=== PATIENT | female | born 1950 | race Caucasian/White ===

== ENCOUNTER 2023-07-11 20:45 | Emergency (ER) | payer MEDICARE, SELFPAY ==
--- NOTE | ~2023-07-11 | XR_ITS ---
EXAMINATION: XR chest 1V portable Exam Date/Time: 07/11/2023 21:10 CDT HISTORY: SVT, lightheaded, vomiting Comparison: 08/30/2018. RESULT: Lines, tubes, and devices: Loop recorder. Lungs and pleura: Diffuse mid and lower lung reticular opacities. Left costophrenic angle blunting. Cardiomediastinal silhouette: Stable. Other: No acute osseous or upper abdominal finding. IMPRESSION: Mild interstitial edema. Subsegmental left basilar atelectasis/consolidation. Possible small left ple ural effusion. Reviewed, dictated and finalized at location K. IMPRESSION: Mild interstitial edema. Subsegmental left basilar atelectasis/consolidation. P ossible small left pleural effusion.
--- NOTE | 2023-07-11 20:50 | ECG_ITS ---
Measurements Intervals [place] Rate: 100 P: 68 AK: 137 QRS: 28 QRSD: 93 T: -27 QT: 322 QTc: 416 Interpretive Statements SINUS TACHYCARDIA WITH SINUS ARRHYTHMIA INCOMPLETE RIGHT BUNDLE BRANCH BLOCK NONSPECIFIC ST & T-WAVE ABNORMALITY- ANT/INF LEADS BORDERLINE ECG NO PREVIOUS ECG AVAILABLE FOR COMPARISON Electronically Signed On 07-12-2023 7:00:54 CDT by Sekou Rubi D.O.
[2023-07-11 20:51] VITALS: BP 142/85; PULSE 101; RESP 23; O2SAT 95
--- NOTE | 2023-07-11 21:01 | ED.ARRPALP ---
HPI - Arrhythmia/Palpitations General Chief Complaint: Arrhythmia/Palpitations Stated Complaint: svt Time Seen by Provider: 07/11/23 20:46 History of Present Illness HPI narrative: Patient is a 73-year-old female with a history of SVT status post ablations presenting with SVT. Patient was out dancing tonight when she developed palpitations and lightheadedness. States that it felt like her prior episodes of SVT. She became nauseated and had an episode of emesis. When EMS arrived, her heart rate was in the 200s, SVT on EKG. She received 6 mgs then 12 mgs of adenosine without resolution of her SVT. She was then cardioverted successfully. On arrival, she is in sinus rhythm. She denies current complaints. She denies any chest pain or shortness of breath tonight. States that she takes metoprolol twice a day. Related Data Allergies Allergy/AdvReac Type Severity Reaction Status Date / Time No Known Allergies Allergy Verified 07/14/23 14:05 Review of Systems Review of Systems: All systems reviewed & are unremarkable except as noted in HPI and below [facility] Social History Social History (Updated 07/14/23 @ 14:42 by Shellie Loera MA) Smoking status: Former smoker Alcohol intake: current Alcohol use details: rarely Substance use: never Substance use type: does not use Lack of Transportation: No Lack of Food: Never True Current Housing: I Have Housing Concerned About Future Housing: No Difficulty Paying Gas/Electric Bills: No Difficulty Paying for Meds: No Currently Unemployed: No Education: High School Diploma/GED Difficulty w/ Childcare or Family Care: No Living arrangements: with family Gender identity (if verbalized by the patient): Female Exam Narrative: GENERAL: Well-appearing, in no acute distress, pleasant and cooperative HEAD: Normocephalic, atraumatic. EYES: PERRLA and EOMI. ENT: Nares clear, no rhinorrhea or epistaxis. Mucous membranes moist. NECK: Supple. CHEST: Clear to auscultation. No respiratory distress. HEART: Regular rate and rhythm. Normal peripheral pulses. ABDOMEN: Soft, nontender, nondistended EXTREMITIES: Normal range of motion. No edema. SKIN: Warm, dry, no rash. NEURO: No focal deficits. Alert and oriented x3. PSYCH: Normal mood and affect. Course Vital Signs Vital signs: Vital Signs Pulse Rate 101 H 07/11/23 20:51 Respiratory Rate 23 H 07/11/23 20:51 Blood Pressure 142/85 H 07/11/23 20:51 Pulse Oximetry 95 07/11/23 20:51 Oxygen Delivery Room Air 07/11/23 20:51 Pulse Rate 69 07/11/23 23:55 Respiratory Rate 14 07/11/23 23:55 Blood Pressure 107/83 07/11/23 23:55 Pulse Oximetry 99 07/11/23 23:55 Oxygen Delivery Room Air 07/11/23 20:51 MDM - Arrhythmia/Palpitations MDM Narrative Medical decision making narrative: Patient is a 73-year-old female presenting with SVT. Patient was cardioverted by EMS. By the time I evaluated her, she is in sinus rhythm. She denies any complaints at this time. Plan for blood work, chest x-ray, fluids, dose of metoprolol. EKG per my interpretation shows sinus tachycardia with incomplete right bundle branch block, no ST elevations or depressions. Unchanged from prior. Blood work with leukocytosis. Patient denies any infectious symptoms. Troponin is 0.021. Chest x-ray with very mild interstitial edema, likely related to this episode of SVT. She denies any respiratory complaints. Patient observed for several hours. Heart rate has normalized to the 60s. No recurrence of symptoms or arrhythmias. Feel she is safe for outpatient management. Advised cardiology and PCP follow-up. Appropriate return precautions given. Patient voiced understanding and is agreeable with plan. Discharged in stable condition. Differential Diagnosis Differential diagnosis: Likely palpitations, anxiety, sinus tachycardia, artial fibrillation, artial flutter and supraventricular tachycardia Medical R
[2023-07-11] MEDS: SODIUM CHLORIDE 0.9% IV 1,000 ML 999 ML IV CONT (21:34)
[2023-07-11 21:35] VITALS: PULSE 98
[2023-07-11] MEDS: METOPROLOL TARTRATE 50 MG TAB 25 MG PO (21:35)
[2023-07-11 22:00] LABS: Basophils Absolute Auto 0.1 K/mm3 (0.0-0.1); Basophils Percent Auto 0.3 % (0.2-1.2); Eosinophils Absolute Auto 0.1 K/mm3 (0-0.3); Eosinophils Percent Auto 0.9 % (0-4.4); Hemoglobin 11.5 g/dL (12.0-15.0); Immature Granulocyte Percent A 0.7 % (0-0.5); Lymphocytes Absolute Auto 1.04 K/mm3 (0.9-3.2); Lymphocytes Percent Auto 6.8 % (18.3-44.2); Mean Corpuscular HGB Conc 31.9 g/dl (32-36); Mean Corpuscular Hemoglobin 27.1 pg (26-34); Mean Corpuscular Volume 84.7 fl (80-100); Mean Platelet Volume 9.6 fl (7.4-10.4); Monocytes Absolute Auto 0.7 K/mm3 (0.1-0.6); Monocytes Percent Auto 4.7 % (2.6-8.5); Neutrophils Absolute Auto 13.2 K/mm3 (1.3-6.7); Neutrophils Percent Auto 86.6 % (45.5-73.1); Platelet Count Result 228 k/mm3 (150-375); Red Blood Count 4.25 M/mm3 (4.2-5.4); Red Cell Distribution Width 14.5 % (11.5-14.5); White Blood Count 15.3 K/mm3 (4.5-10.0)
[2023-07-11 22:14] LABS: INR 1.1; Partial Thromboplastin Time 25.5 SECONDS (22.3-36.8); Prothrombin Time 14.7 Seconds (11.1-14.7)
[2023-07-11 22:16] LABS: Alanine Aminotransferase 136 U/L (6-35); Alkaline Phosphatase 100 U/L (38-126); Anion Gap 6 mmol/L (8-16); Aspartate Amino Transferase 203 U/L (14-36); Bilirubin,Total 0.5 mg/dL (0.2-1.3); Blood Urea Nitrogen 14 mg/dL (7-17); Calcium 8.9 mg/dL (8.4-10.2); Carbon Dioxide 26 mmol/L (22-30); Chloride 107 mmol/L (98-107); Estimated CRCL calculation 42 ml/min; Estimated Glomerular Filt Rate > 60; Glucose 153 mg/dL (65-110); Magnesium 2.4 mg/dL (1.6-2.3); Potassium 3.5 mmol/L (3.4-5.0); Sodium 139 mmol/L (137-145)
[2023-07-11 22:27] LABS: Troponin I 0.021 ng/mL (0.000-0.034)
[2023-07-11 23:00] VITALS: PULSE 98
[2023-07-11 23:01] VITALS: BP 122/68; PULSE 74; RESP 19; O2SAT 99
[2023-07-11 23:55] VITALS: BP 107/83; PULSE 69; RESP 14; O2SAT 99
== END 2023-07-11 23:55 | disposition home or self-care (01) ==
PROVIDERS: Emergency Provider Emergency Medicine; PCP Family Medicine
DX: I47.1 Supraventricular tachycardia (principal); R00.2 Palpitations; Z87.891 Personal history of nicotine dependence; I45.10 Unspecified right bundle-branch block; R94.31 Abnormal electrocardiogram [ECG] [EKG]; J81.1 Chronic pulmonary edema
CPT/HCPCS: 36415; 71045; 80053; 83735; 84484; 85025; 85610; 85730; 93005; 96360; 99284; A9270; J7030

== ENCOUNTER 2023-07-16 08:18 | Outpatient (CLI) | payer MEDICARE, SELFPAY ==
[2023-07-16 09:59] LABS: Hematocrit 40.6 % (37.0-47.0); Hemoglobin 12.4 g/dL (12.0-15.0); Mean Corpuscular HGB Conc 30.5 g/dl (32-36); Mean Corpuscular Hemoglobin 26.3 pg (26-34); Mean Platelet Volume 10.3 fl (7.4-10.4); Platelet Count Result 231 k/mm3 (150-375); Red Blood Count 4.72 M/mm3 (4.2-5.4); Red Cell Distribution Width 14.4 % (11.5-14.5); White Blood Count 8.2 K/mm3 (4.5-10.0)
[2023-07-16 10:27] LABS: Alanine Aminotransferase 41 U/L (6-35); Alkaline Phosphatase 72 U/L (38-126); Anion Gap 5 mmol/L (8-16); Aspartate Amino Transferase 28 U/L (14-36); Bilirubin,Total 0.5 mg/dL (0.2-1.3); Blood Urea Nitrogen 19 mg/dL (7-17); Calcium 9.4 mg/dL (8.4-10.2); Carbon Dioxide 31 mmol/L (22-30); Chloride 105 mmol/L (98-107); Cholesterol 228 mg/dL (0-200); Estimated Glomerular Filt Rate > 60; Glucose 105 mg/dL (65-110); HDL Direct 63 mg/dL; Potassium 4.2 mmol/L (3.4-5.0); Sodium 141 mmol/L (137-145); Triglycerides 72 mg/dL (<150)
[2023-07-16 10:30] LABS: Iron 64 ug/dL (37-170)
[2023-07-16 10:32] LABS: Hemoglobin A1C 5.8 % (<5.7)
[2023-07-16 10:45] LABS: LDL Cholesterol Direct 135 mg/dL
[2023-07-16 10:51] LABS: Percent Iron Saturation 24 % (20-50)
== END 2023-07-16 08:19 | disposition home or self-care (01) ==
PROVIDERS: PCP Family Medicine; Visit Provider Family Medicine
DX: R73.03 Prediabetes (principal); R74.8 Abnormal levels of other serum enzymes; E78.5 Hyperlipidemia, unspecified; D64.9 Anemia, unspecified; Z79.899 Other long term (current) drug therapy
CPT/HCPCS: 36415; 80053; 80061; 82728; 83036; 83540; 83550; 84443; 85027

== ENCOUNTER 2024-02-23 09:15 | Outpatient (CLI) | payer MEDICARE, SELFPAY ==
[2024-02-23 14:14] LABS: Alanine Aminotransferase 21 U/L (6-35); Albumin Level 4.2 g/dL (3.5-5.1); Alkaline Phosphatase 71 U/L (38-126); Anion Gap 4 mmol/L (4-12); Aspartate Amino Transferase 35 U/L (14-36); Bilirubin,Total 0.4 mg/dL (0.2-1.3); Blood Urea Nitrogen 22 mg/dL (7-17); Calcium 9.3 mg/dL (8.4-10.2); Carbon Dioxide 24 mmol/L (22-30); Chloride 109 mmol/L (98-107); Estimated Glomerular Filt Rate > 60; Glucose 89 mg/dL (65-110); Potassium 4.2 mmol/L (3.4-5.0); Sodium 137 mmol/L (137-145)
== END 2024-02-23 09:16 | disposition home or self-care (01) ==
PROVIDERS: PCP Family Medicine; Visit Provider Family Medicine
DX: Z79.899 Other long term (current) drug therapy (principal)
CPT/HCPCS: 36415; 80053

== ENCOUNTER 2024-05-02 08:24 | Outpatient (CLI) | payer MEDICARE, SELFPAY ==
[2024-05-02 15:11] LABS: Hematocrit 38.3 % (37.0-47.0); Hemoglobin 11.7 g/dL (12.0-15.0); Mean Corpuscular HGB Conc 30.5 g/dl (32-36); Mean Corpuscular Hemoglobin 26.2 pg (26-34); Mean Corpuscular Volume 85.7 fl (80-100); Mean Platelet Volume 9.5 fl (7.4-10.4); Platelet Count Result 301 k/mm3 (150-375); Red Blood Count 4.47 M/mm3 (4.2-5.4); Red Cell Distribution Width 14.3 % (11.5-14.5); White Blood Count 8.6 K/mm3 (4.5-10.0)
[2024-05-02 15:34] LABS: Hemoglobin A1C 6.4 % (<5.7)
[2024-05-02 15:35] LABS: Alanine Aminotransferase 20 U/L (6-35); Albumin Level 4.4 g/dL (3.5-5.1); Alkaline Phosphatase 78 U/L (38-126); Anion Gap 11 mmol/L (4-12); Aspartate Amino Transferase 40 U/L (14-36); Bilirubin,Total 0.4 mg/dL (0.2-1.3); Blood Urea Nitrogen 16 mg/dL (7-17); Calcium 9.5 mg/dL (8.4-10.2); Carbon Dioxide 22 mmol/L (22-30); Chloride 106 mmol/L (98-107); Cholesterol 228 mg/dL (0-200); Estimated Glomerular Filt Rate > 60; Glucose 83 mg/dL (65-110); HDL Direct 51 mg/dL; Potassium 4.4 mmol/L (3.4-5.0); Sodium 139 mmol/L (137-145); Triglycerides 97 mg/dL (<150)
[2024-05-02 16:16] LABS: LDL Cholesterol Direct 147 mg/dL
== END 2024-05-02 08:25 | disposition home or self-care (01) ==
LOC: ANHGOSHLAB 08:26
PROVIDERS: PCP Family Medicine; Visit Provider Family Medicine
DX: R73.03 Prediabetes (principal); E78.5 Hyperlipidemia, unspecified; Z79.899 Other long term (current) drug therapy
CPT/HCPCS: 36415; 80053; 80061; 83036; 85027

== ENCOUNTER 2024-10-27 13:04 | Outpatient (CLI) | payer MEDICARE, SELFPAY ==
[2024-10-27 20:37] LABS: Hematocrit 40.4 % (37.0-47.0); Hemoglobin 12.3 g/dL (12.0-15.0); Mean Corpuscular HGB Conc 30.4 g/dl (32-36); Mean Corpuscular Hemoglobin 25.7 pg (26-34); Mean Corpuscular Volume 84.5 fl (80-100); Platelet Count Result 291 k/mm3 (150-375); Red Blood Count 4.78 M/mm3 (4.2-5.4); Red Cell Distribution Width 13.5 % (11.5-14.5); White Blood Count 10.3 K/mm3 (4.5-10.0)
[2024-10-27 20:41] LABS: CRP 0.6 mg/dL (<1.0); Uric Acid 4.1 mg/dL (2.5-7.5)
[2024-10-27 20:51] LABS: Rheumatoid Factor 22.3 IU/ML (<12)
[2024-10-27 21:09] LABS: Erythrocyte Sedimentation Rate 16 mm/hr (0-20)
[2024-10-27 21:35] LABS: Folic Acid 16.1 ng/mL (2.76->20)
[2024-10-27 23:51] LABS: Vitamin D 25 Hydroxy 34.5 ng/mL
== END 2024-10-27 13:05 | disposition home or self-care (01) ==
PROVIDERS: PCP Family Medicine; Visit Provider Internal Medicine Rheumatology
DX: M06.9 Rheumatoid arthritis, unspecified (principal); M19.90 Unspecified osteoarthritis, unspecified site; E55.9 Vitamin D deficiency, unspecified; E53.8 Deficiency of other specified B group vitamins; D50.9 Iron deficiency anemia, unspecified; Z11.59 Encounter for screening for other viral diseases; Z51.81 Encounter for therapeutic drug level monitoring
CPT/HCPCS: 36415; 82306; 82607; 82746; 84550; 85027; 85652; 86038; 86039; 86140; 86200; 86430; 87522

== ENCOUNTER 2024-11-14 13:58 | Outpatient (CLI) | payer MEDICARE, SELFPAY ==
--- OUTSIDE RECORDS SUMMARY | 2024-11-14 14:45 | XMS_ITS | Referral Summary ---
Author Organization [facility] Address [address] [place] [address] Care Team Providers Care Family Independence Case Manager Name Role Phone Marci Hannah MD Primary Care Provider + Allergies No known active allergies Medications metoprolol tartrate (LOPRESSOR) 25 mg immediate release tablet Take 1 tablet (25 mg total) by mouth 2 (two) times a day 60 tablet 11 09/11/2023 Active Active Problems Problem Noted Date Diagnosed Date Atrial tachycardia, paroxysmal 09/09/2023 Assessment & Plan (09/09/2023 10:53 AM OPERATOR CAVITY PUMP): Frequent, short episodes of PAT. Likely responsible for regular palpitations. --Increase metoprolol to 25 mg BID Tachycardia 08/05/2023 Assessment & Plan (08/05/2023 1:22 PM CDT): Undifferentiated tachyarrhythmia. Recent event similar to prior episode. No ECGs/strips for review. --Will attempt to obtain ECG from ambulance --2 week Boxevery monitor --Continue metoprolol 12.5 mg BID Consider repeat EPS, possible ablation pending results PVC's (premature ventricular contractions) 08/05 Assessment & Plan (08/05/2023 1:23 PM CDT): S/p PVC ablation remotely by Dr. Milan. One PVC on ECG today. Unclear whether relevant to ongoing symptoms. --Continue metoprolol 12.5 mg BID --Monitor as above Status post placement of implantable loop record er 01/19/2019 Overview (01/19/2019): Medtronic LINQ (ILR) imp on 01/19/19 for VT. Kayli/Staci Torres VT (ventricular tachycardia) 11/17/2018 Overview (11/17/2018): Added automatically from request for surgery [id number] Assessment & Plan (09/09/2023 10:52 AM OPERATOR CAVITY PUMP): S/p VT ablation remotely by Dr. Milan. Occurring in context of a mild NICM. Some suggestion of ARVC by MRI without meeting diagnostic criteria. No recurrent episodes of sustained palpitations/syncope suggestive of VT. Event monitor shows no VT, rare PVCs. We discussed repeat ILR for ongoing monitoring. Will defer for now. Will increase BB and observe. Report any recurrent symptoms. --Increase metoprolol to 25 mg BID Palpitations 10/27/2018 Rheumatoid arthritis 10/27/2018 Elevated blood sugar 10/27/2018 Resolved Problems Problem Noted Date Diagnosed Date Resolved Date Atrial flutter (CMS/HCC) 10/27/2018 Social History Tobacco Use Types Packs/Day Years Used Date Smoking Tobacco: Former Smokeless Tobacco: Never Alcohol Use Standard Drinks/Week Comments Yes 0 (1 standard drink = 0.6 oz pur e alcohol) very rarely Comments Unknown Sex and Gender Information Value Date Recorded Sex Assigned at Not on file Legal Sex Female 2:01 AM OPERATOR CAVITY PUMP Gender Identity Not on file Sexual Orientation Not on file Last Filed Vital Signs Vital Sign Reading Time Taken Comments Blood Pressure 116/72 09/09/2023 10:36 AM OPERATOR CAVITY PUMP Pulse 55 09/09/2023 10:36 AM OPERATOR CAVITY PUMP Temperature 37.1 ??C (98.8 ??F) 01/19/2019 8:42 AM CD T Respiratory Rate 16 01/19/2019 8:42 AM CDT Oxygen Saturation 98% 09/09/2023 10: 36 AM OPERATOR CAVITY PUMP Inhaled Oxygen Concentration - - Weight 59.3 kg (130 lb 11.2 oz) 023 10:36 AM OPERATOR CAVITY PUMP Height 162.6 cm (5' 4.02 ) 09/09/2023 1 0:36 AM OPERATOR CAVITY PUMP Body Mass Index 22.42 09/09/2023 10:36 AM OPERATOR CAVITY PUMP Plan of Treatment Not on file Medical Devices Implanted Type Area Rougher Helper Device Identifier Shelf Expiration Date Model / Serial / Lot Medtronic Cardiac Rhythm Mgmt Linqsys Reveal Linq Mycarelink Insertable Loop Recorder Automatic - [id number] - [id number] Implanted:Qty: 1 on 01/18/2019 by Dev Milan MD at [facility] Medtronic Cardiac Rhythm Mgmt 08/15/2019 LINQSYS / [id number] / D Insurance MEDICARE SOLUTIONS MEDICARE SOLUTIONS Care Teams Family Independence Case Manager Relationship Specialty Start Date End Date Marci Hannah MD PCP - General Family Medicine 07/04/20
--- OUTSIDE RECORDS SUMMARY | 2024-11-14 14:45 | XMS_ITS | Clinical Summary ---
Author Organization [facility] Address [address] [place] [address] Care Team Providers Care Lapping Machine Tender Name Role Phone Marci Hannah MD Primary Care Provider + Allergies No known active allergies Medications metoprolol tartrate (LOPRESSOR) 25 mg immediate release tablet Take 1 tablet (25 mg total) by mouth 2 (two) times a day 60 tablet 11 09/11/2023 Active Active Problems Problem Noted Date Diagnosed Date Atrial tachycardia, paroxysmal 09/09/2023 Assessment & Plan (09/09/2023 10:53 AM CALIBRATOR BAROMETERS): Frequent, short episodes of PAT. Likely responsible for regular palpitations. --Increase metoprolol to 25 mg BID Tachycardia 08/05/2023 Assessment & Plan (08/05/2023 1:22 PM CDT): Undifferentiated tachyarrhythmia. Recent event similar to prior episode. No ECGs/strips for review. --Will attempt to obtain ECG from ambulance --2 week Ziltay monitor --Continue metoprolol 12.5 mg BID Consider [...] (11/17/2018): Added automatically from request for surgery [id number] Assessment & Plan (09/09/2023 10:52 AM CALIBRATOR BAROMETERS): S/p VT ablation remotely by Dr. Milan. [...] Date Resolved Date Atrial flutter (CMS/HCC) 10/27/2018 Surgical History Surgery Date Site/Laterality Comments CARDIAC CATHETERIZATION DILATION AND CURETTAGE OF UTERUS miscarrgiage Medical History Medical History Date Comments Hyperlipidemia Atrial fibrillation (CMS/HCC) (HCC) VT (ventricular tachycardia) (HCC) Hx of viral pneumonia walking pn e[place] ?source Family History Medical History Relation Name Comments Cancer Brother 1 Cancer -; Colon cancer Brother 2 Cancer -colon; Asthma Daughter Asthma; Alzheimer's disease Father Cancer Father Cancer -; Diabetes type II Sister Diabetes -T ype 2; Relation Name Status Comments Brother 1 Brother 2 Daughter Father Mother Alive Sister Social History Tobacco Use Types Packs/Day Years Used Date Smoking Tobacco: Former Smokeless Tobacco: Never Alcohol Use Standard Drinks/Week Comments Yes 0 (1 standard drink = 0.6 oz pur e alcohol) very rarely Comments Unknown Sex and Gender Information Value Date Recorded Sex Assigned at Not on file Legal Sex Female 2:01 AM CALIBRATOR BAROMETERS Gender Identity Not on file Sexual Orientation Not on file Obstetrics History Last Filed Vital Signs Vital Sign Reading Time Taken Comments Blood Pressure 116/72 09/09/2023 10:36 AM CALIBRATOR BAROMETERS Pulse 55 09/09/2023 10:36 AM CALIBRATOR BAROMETERS Temperature 37.1 ??C (98.8 ??F) 01/19/2019 8:42 AM CD T Respiratory Rate 16 01/19/2019 8:42 AM CDT Oxygen Saturation 98% 09/09/2023 10: 36 AM CALIBRATOR BAROMETERS Inhaled Oxygen Concentration - - Weight 59.3 kg (130 lb 11.2 oz) 023 10:36 AM CALIBRATOR BAROMETERS Height 162.6 cm (5' 4.02 ) 09/09/2023 1 0:36 AM CALIBRATOR BAROMETERS Body Mass Index 22.42 09/09/2023 10:36 AM CALIBRATOR BAROMETERS Plan of Treatment Health Maintenance Due Date Last Done Comments Breast Cancer Screening-Mammogram 1950 Colon Cancer Screening-Colonoscopy 1950 Depression Screening 1950 Fall Risk Assessment 1950 Hepatitis C Screening 1950 Osteoporosis Screening-Bone Density Scan 1950 DTaP/Tdap/Td Vaccine (1 - Tdap) 1961 Hepatitis B Screening 1968 Zoster Vaccine (1 of 2) 2000 Well Visit 65+ 2015 Pneumococcal vaccine 65+ (2 of 2 - PPSV23 or PCV20) 09/27/2020 Influenza Vaccine (#1) 2024 Medical Devices Implanted Type Area Medical Education Manager Device Identifier Shelf Expiration Date Model / Serial / Lot Medtronic Cardiac Rhythm Mgmt Linqsys Reveal Linq Mycarelink Insertable Loop Recorder Automatic - [id number] - [id number] Implanted:Qty: 1 on 01/18/2019 by Dev Milan MD at [facility] Medtronic Cardiac Rhythm Mgmt 08/15/2019 LINQSYS / [id number] / D Insurance MEDICARE SOLUTIONS Member Subscriber Plan / Payer (Ef fective 2022-Present) Name:Laurel Rhodes Relation to Subscriber:Self Name:Laurel Rhodes Payer ID:[id number] (NAIC) Type:UHC MEDICARE Address: [place] [phone] MEDICARE SOLUTIONS Care Teams Lapping Machine Tender Relationship Specialty Start Date End Date Marci Hannah MD PCP - General Family Medicine 07/04/20
[2024-11-14 17:16] LABS: HIV 1/2 Ab P24 Ag Result Negative (Negative)
[2024-11-14 18:40] LABS: HAV RESULT Negative (Negative); Hepatitis B Core IgM Result Negative (Negative)
[2024-11-14 18:52] LABS: Hepatitis B Surface Anti Res Negative; Hepatitis C Virus Antibody Negative (Negative)
[2024-11-14 19:53] LABS: Hepatitis B Surface Antigen Negative (Negative)
[2024-11-15 17:14] LABS: Hepatitis B DNA PCR NOT DETECTED (NOT DETECTED); Hepatitis B DNA PCR NOT DETECTED Log IU/mL (NOT DETECTED)
[2024-11-16 12:59] LABS: NIL 0.02 IU/mL; Quantiferon TB Plus, 1T NEGATIVE (NEGATIVE)
== END 2024-11-14 13:59 | disposition home or self-care (01) ==
PROVIDERS: PCP Family Medicine; Visit Provider Internal Medicine Rheumatology
DX: M06.9 Rheumatoid arthritis, unspecified (principal); B20 Human immunodeficiency virus [HIV] disease; Z76.89 Persons encountering health services in other specified circumstances; Z11.4 Encounter for screening for human immunodeficiency virus [HIV]; Z72.89 Other problems related to lifestyle; Z11.59 Encounter for screening for other viral diseases
CPT/HCPCS: 36415; 80074; 86480; 86703; 86705; 86706; 87340; 87517; G0432

== ENCOUNTER 2024-11-28 10:47 | Outpatient (CLI) | payer MEDICARE, SELFPAY ==
--- NOTE | ~2024-11-28 | XR_ITS ---
EXAMINATION: XR hand LT 2V, XR wrist LT 2V DATE: 11/28/2024 13:11 INDICATION: Multiple joint pain TECHNIQUE: 1. Posteroanterior and lateral views of the left wrist were obtained. 2. Dorsal palmar and lateral views of the left hand were obtained. COMPARISON: None. FINDINGS: There is diffuse but periarticular predominant osteopenia. There is severe joint space narrowing at t he wrist, midcarpal, triscaphe and second metacarpophalangeal joints. There are subarticular lucencie s at the distal radius and at several of the carpal bones most prominent at the proximal pole of the scaphoid which could represent degenerative subarticular cystlike changes or erosions. Less severe mo derate joint space narrowing at the first carpometacarpal joint and mild joint space narrowing at man y of the remaining metacarpophalangeal and interphalangeal joints. IMPRESSION: 1. 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 Reviewed, dictated and finalized at location A. OPATHIC PHYSICIAN IMPRESSION: 1. 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
--- NOTE | ~2024-11-28 | XR_ITS ---
Right Shoulder Technique: AP and scapular Y views were obtained. Clinical History: Pain Findings: No fracture or dislocation is seen. Osseous alignment is anatomic. The glenohumeral and acr omioclavicular joint spaces are preserved. Soft tissues are unremarkable. Impression: Unremarkable right shoulder radiographs. Reviewed, dictated and finalized at [facility]. SAWYER Impression: Unremarkable right shoulder radiographs.
--- NOTE | ~2024-11-28 | XR_ITS ---
HISTORY: MULTIPLE JOINT PAIN COMPARISON: None TECHNIQUE: 2 views of the right hand were performed. FINDINGS: No acute fracture is identified. Gullwing deformity is present within the proximal interphalangeal joints of digits 2 through 5. Ulnar deviation of the digits is also noted. Severe degenerative disease is identified at the first carpal metacarpal joint space. Within the seco nd carpometacarpal joint space, erosive change of the joint is identified with overlying soft tissue swelling. The carpal arcs are narrowed and distorted. Severe radiocarpal joint space narrowing with sclerosis of the distal radius, scaphoid and lunate are noted. IMPRESSION: Degenerative disease, with a distribution identified suggesting erosive osteoarthritis, as detailed rocio mac. Reviewed, dictated and finalized at location A. EL ASSISTANT IMPRESSION: Degenerative disease, with a distribution identified suggesting erosive osteoar thritis, as detailed above.
--- NOTE | ~2024-11-28 | XR_ITS ---
EXAMINATION: XR wrist RT 2V DATE: 11/28/2024 13:11 INDICATION: Multiple joint pain. TECHNIQUE: 2 views of right wrist were obtained. COMPARISON: None. FINDINGS: There is palmar subluxation of second and third proximal phalanges of the second metacarpal s. No fracture. There is mild osteoarthritis of triscaphe joint and severe osteoarthritis of first ca rpometacarpal joint. There is severe osteoarthritis of second metacarpophalangeal joint and mild oste oarthritis of first and third metacarpophalangeal joints. IMPRESSION: 1. Polyarticular osteoarthritis. Reviewed, dictated and finalized at location A. L CUTTER
--- NOTE | ~2024-11-28 | XR_ITS ---
Left Shoulder Technique: AP and scapular Y views were obtained. Clinical History: Pain Findings: No fracture or dislocation is seen. Osseous alignment is anatomic. The glenohumeral and acr omioclavicular joint spaces are preserved. Soft tissues are unremarkable. Impression: Unremarkable left shoulder radiographs. Reviewed, dictated and finalized at [facility]. OL SPEECH LANGUAGE PATHOLOGIST Impression: Unremarkable left shoulder radiographs.
--- NOTE | ~2024-11-28 | XR_ITS ---
EXAMINATION: XR foot RT 2V, XR ankle RT 2V, XR ankle LT 2V, XR foot LT 2V DATE: 11/28/2024 13:11 INDICATION: Multiple joint pain TECHNIQUE: 1. Anteroposterior and lateral view of the left ankle were obtained. 2. Dorsoplantar and lateral views of the affected foot were obtained. 3. Anteroposterior and lateral view of the affected ankle were obtained. 4. Dorsoplantar and lateral views of the affected foot were obtained. COMPARISON: None. FINDINGS: Left foot and ankle: Alignment of the left foot and ankle is normal. No fracture. There is severe joint space narrowing at the third metatarsophalangeal joint with large chronic appearing erosion at the medial head of the t hird metatarsal. Additional large erosions at the medial and lateral sides of the head of the fifth m etatarsal with only mild associated joint space narrowing. There is additional mild joint space narro wing at the first metatarsophalangeal joint, the calcaneocuboid joint and several tarsal metatarsal a nd interphalangeal joints. Small plantar calcaneal spur. Suggestion of additional small erosion at th e which cephalad posterior tuberosity of the calcaneus. No ankle joint effusion. The soft tissues are unremarkable. Right foot and ankle: Alignment of the right foot and ankle is normal. No fracture. Ankylosis across the second metatarsoph alangeal joint. There is additional mild polyarticular osteoarthritis involving multiple tarsal metat arsal, metatarsophalangeal and interphalangeal joints. There are erosions at the lateral head of the fifth metatarsal at the medial base of the first distal phalanx. No ankle joint effusion. The soft ti ssues are unremarkable. IMPRESSION: 1. Polyarticular arthritis, severe at the left third metatarsophalangeal and with ankylosis at the ri ght second metatarsophalangeal joint and otherwise mild. 2. Several erosions in the forefoot most notably along the heads of several of the metatarsals which suggests underlying inflammatory arthritis such as rheumatoid or potentially gout. Reviewed, dictated and finalized at location A. LLARY SERVICES MANAGER IMPRESSION: 1. Polyarticular arthritis, severe at the left third metatarsophalangeal and wi th ankylosis at the right second metatarsophalangeal joint and otherwise mild. 2. Several erosions in the forefoot most notably along the heads of several of the metatarsals which suggests underlying inflammatory arthritis such as rheuma toid or potentially gout. IMPRESSION: 1. Polyarticular arthritis, severe at the left third metatarsophalangeal and wi th ankylosis at the right second metatarsophalangeal joint and otherwise mild. 2. Several erosions in the forefoot most notably along the heads of several of the metatarsals which suggests underlying inflammatory arthritis such as rheuma toid or potentially gout. IMPRESSION: 1. Polyarticular arthritis, severe at the left third metatarsophalangeal and wi th ankylosis at the right second metatarsophalangeal joint and otherwise mild. 2. Several erosions in the forefoot most notably along the heads of several of the metatarsals which suggests underlying inflammatory arthritis such as rheuma toid or potentially gout.
== END 2024-11-28 10:48 | disposition home or self-care (01) ==
PROVIDERS: PCP Internal Medicine Rheumatology; Visit Provider Internal Medicine Rheumatology
DX: M19.032 Primary osteoarthritis, left wrist (principal); M19.031 Primary osteoarthritis, right wrist; M89.9 Disorder of bone, unspecified; M19.042 Primary osteoarthritis, left hand; M19.041 Primary osteoarthritis, right hand; M25.511 Pain in right shoulder; M25.512 Pain in left shoulder
CPT/HCPCS: 73030; 73100; 73120; 73600; 73620